=== PATIENT | male | born 1970 | race Caucasian/White ===

== ENCOUNTER 2019-09-15 09:00 | Observation (INO) | payer OTHER, SELFPAY ==
[2019-09-15] VITALS (9 sets, daily range): BP systolic 99–121; BP diastolic 58–92; PULSE 78–89; RESP 14–18; TEMP 36.1–36.8; O2SAT 96–99
--- NOTE | 2019-09-15 09:02 | ED.GENADUL_ITS ---
Discharge Plan Disposition Patient Disposition: OTHER Condition: Stable Discharge Details Chief Complaint: ThroatFB Clinical Impression: Globus sensation Primary Care Provider: Sahra,Local ED Provider: Sarah Garvey Home Meds and New Rx's Prescriptions: No Action lisinopril 10 mg Tablet 10 mg PO DAILY AM RF: 0 Medical Decision Making 919 -- 49-year-old male presents with sensation of food stuck in throat after eating steak last night. Vitals normal on arrival. He appears nontoxic. He is speaking in full sentences and swallowing secretions. No drooling. Normal orop harynx. Lungs clear. Attempted EZ gas fizzy granules x2 at bedside without any relief. Also attempted to drink carbonated soda without relief. He is unable to swallow these liquids. Will place an IV, bolus IV fluids, 1 mg glucagon and obtain a soft tissue neck x-ray. 1130 -- soft tissue next x-ray negative. No relief with glucagon. Also attempted nitro sublingual without any relief. Patient still unable to swallow any liquids and he spits this back up each time. Will call surgery for evaluation. 1150 --discussed with Dr. Avery -will come to evaluate within the hour and plan to take patient to the OR. Patient is agreeable for plan. COVID swab obtained. Medical Records Medical records reviewed: Yes I reviewed the patient's medical records. Imaging Data Radiologic Study: Radiologist's impression: XR Soft Tissue Neck Exam date and time: 09/15/2019 10:47 AM Age: 49 years old Clinical indication: Other: Sensation of steak in throat TECHNIQUE: Imaging protocol: XR of the soft tissues of the neck. COMPARISON: No relevant prior studies available. FINDINGS: Airway: Normal. No abnormal narrowing. Soft tissues: Normal. Normal epiglottis. Bones/joints: Mild multilevel spondylosis. No acute fracture. IMPRESSION: No acute findings to explain globus sensation. HPI General Mode of arrival: ambulatory . Date/Time Provider Initiated Documentation: 09/15/19 09:01 . Limitations to Documentation: no limitations . Information obtained by: patient . HPI Narrative: Patient is a 49-year-old male who traveled from [place] yesterday to visit friends who presents with sensation of food stuck in throat after eating steak last night. Patient states he was drinking alcohol and eating steak when he felt a sensation that it was stuck. He states since then he has been unable to swallow liquids and eat foods as it comes right back up. He denies any throat pain, sore throat, difficulty breathing, abdominal pain. He states this happened once before but resolved on its own. Related Data Home Medications Medication Instructions Recorded Confirmed lisinopril 10 mg PO DAILY AM 09/15/19 09/15/19 Allergies Allergy/AdvReac Type Severity Reaction Status Date / Time No Known Allergies Allergy Unverified 09/15/19 09:15 Review of Systems All systems reviewed & are unremarkable except as noted in HPI and below Constitutional Constitutional: Reports as per HPI, Denies chills and Denies fever(s) Eyes Eyes: Denies blurry vision ENT Ears, Nose, Mouth, and Throat: Denies dizziness, Denies sore throat and Denies throat swelling Cardiovascular Cardiovascular: Denies chest pain and Denies dyspnea Respiratory Respiratory: Denies cough and Denies dyspnea Gastrointestinal Gastrointestinal: Denies abdominal pain, Denies diarrhea and Denies vomiting Genitourinary Genitourinary: Denies hematuria and Denies dysuria Musculoskeletal Musculoskeletal: Denies back pain and Denies numbness Integumentary/Breasts Skin/Breast: Denies lesions and Denies rash Neurologic Neurologic: Denies dizziness, Denies localized weakness and Denies numbness Allergic/Immunologic Allergic/Immunologic: Denies throat swelling [facility] Medical History (Updated 09/15/19 @ 12:07 by Sarah Garvey DO) HTN (hypertension) (Chronic) Surgical History (Updated 09/15/19 @ 09:18 by Sarah Garvey DO) No significant past surgical history (Acute) Social History Smoking/Tobacco Use Status: Former Tobacco Use Alcohol Intake: current Alcohol Intake frequency: 0-2 drinks per day Drug use: Rarely Substance use type: marijuana Do you feel safe at home: Yes Do you feel safe in your relationship?: Yes Exam Const General: cooperative, healthy appearing and no acute distress HENMT Head: normal to inspection Ears: hearing grossly normal bilaterally, external ears normal and TM's normal bilaterally General nose exam: external nose normal Face and sinus: normal facial exam Mouth: oral mucosae normal Throat: posterior oropharynx normal Eyes General: appearance normal, both eyes and all related structures EOM: EOM intact bilaterally Neck Neck: normal visual inspection, full ROM, no meningeal signs, trachea midline, supple, no anterior neck swelling and No submandibular swelling Lymphatic: no lymphadenopathy noted Chest Chest: normal inspection of the chest and no tenderness Resp Effort & Inspection: normal respiratory effort and able to speak in complete sentences Auscultation: clear to auscultation bilaterally Cardio Rate: regular rate Rhythm: regular rhythm GI Inspection: normal to inspection Palpation: soft, not firm, not rigid and nontender Auscultation: normal bowel sounds Skin General skin exam: no rashes or lesions noted Neuro General: patient alert, patient awake and patient oriented x3 Cognition: normal cognition Speech: speech normal Motor: muscle tone normal throughout Sensory Exam: no sensory deficits noted Extrem General: normal to inspection, full ROM, capillary refill normal, no calf tenderness bilaterally and no edema Psych Appearance: grossly normal Mental Status: mental status grossly normal Speech and Movement: speech and movement normal Affect: normal affect
--- NOTE | 2019-09-15 10:00 | DI.RAD_ITS ---
EXAM: XR SOFT TISSUE NECK CLINICAL HISTORY: sensation of food stuck in throat,r/o foreign body. TECHNIQUE: 2D digital imaging was performed. COMPARISON: No exams were available for comparison FINDINGS: BONES: No acute fracture is present. No bony destructive lesion is seen. Mild degenerative changes in the cervical spine. JOINTS: No dislocation present. SOFT TISSUE: No radiopaque foreign bodies. No prevertebral soft tissue swelling. IMPRESSION: No acute abnormality. DATA REPOSITORY: RADIATION DOSE DELIVERED:
[2019-09-15] MEDS: Glucagon 1 MG VIAL IV (10:28)
[2019-09-15] MEDS: Normal Saline 1,000 ML 1000 ML IV (10:30)
--- NOTE | 2019-09-15 10:58 | DI.VRAD_ITS ---
PROCEDURE INFORMATION: Exam: XR Soft Tissue Neck Exam date and time: 09/15/2019 10:47 AM Age: 49 years old Clinical indication: Other: Sensation of steak in throat TECHNIQUE: Imaging protocol: XR of the soft tissues of the neck. COMPARISON: No relevant prior studies available. FINDINGS: Airway: Normal. No abnormal narrowing. Soft tissues: Normal. Normal epiglottis. Bones/joints: Mild multilevel spondylosis. No acute fracture. IMPRESSION: No acute findings to explain globus sensation. Dictated and Authenticated by: Rajesh Villanueva MD. Ordering:ELAINA Smith MD
[2019-09-15] MEDS: nitroGLYcerin 0.4 MG TAB SL (11:37)
[2019-09-15] MEDS: Normal Saline 1,000 ML 125 ML IV ×2 (12:03→14:19)
--- NOTE | 2019-09-15 13:14 | HPE_ITS ---
Date of service: 09/15/19 Time of Service: 13:14 Assessment and Plan Assessment and plan (1) Esophageal foreign body: Status: Acute Assessment and plan: Informed consent is obtained for the procedural ( explained in simple layman's terms that the pt and/or family could understand) explaining risks vs benefits and alternatives to the procedure and consequences if we do not do the procedure and need/rational for the procedure. Risks include but are not limited to: bleeding, infection, perforation of esophagus, stomach, colon, small intestines, bronchus or trachea, or PTX. This would necessitate emergency surgery to repair the damage w/ possible ostomy; and other associated complications w/ the required surgery. Also complications of anesthesia including aspiration, CO/CVA/. aspiration History of Present Illness Consults Consult date: 09/15/19 Requesting physician: Sarah Garvey Narrative: [place] from [place] state and is here camping. Since dinner last night- feels like he has food stuck in his throat. He cannot swallow liquids down in the ED can't swallow water. He can manage his own secretions. This has happen once before- but has never had to have it removed before. no xrt or sx to head or neck. no recent injury or traumas. denies s/s of heartburn or indisgtion adn is not on any stomach medications. He is a non smoker. No problems w/ anethesia in the past. Review of Systems All systems reviewed & are unremarkable except as noted in HPI and below PFSH Medical History HTN (hypertension) (Chronic) Surgical History No significant past surgical history (Acute) Social History Smoking/Tobacco Use Status: Former Tobacco Use Alcohol Intake: current Alcohol Intake frequency: 0-2 drinks per day Drug use: Rarely Substance use type: marijuana Do you feel safe at home: Yes Do you feel safe in your relationship?: Yes Meds Home Medications and Allergies Home Medications Medication Instructions Recorded Confirmed Type lisinopril 10 mg PO DAILY AM 09/15/19 09/15/19 History Allergies Allergy/AdvReac Type Severity Reaction Status Date / Time No Known Allergies Allergy Unverified 09/15/19 09:15 Exam Resp Effort & Inspection: normal respiratory effort and able to speak in complete sentences Auscultation: clear to auscultation bilaterally Other: is coughing continueously. Cardio Rate: regular rate Rhythm: regular rhythm GI Inspection: normal to inspection Palpation: soft Auscultation: normal bowel sounds Results Last Vital Signs Temp 36.7 C 09/15/19 11:28 Pulse 86 09/15/19 11:28 Resp 18 09/15/19 11:28 BP 115/70 09/15/19 11:40 Pulse Ox 99 09/15/19 11:28 COVID-19 Screening Have you,or household,traveled outside [place] in last 14 days?: Yes Had IN PERSON contact w/suspected or confirmed C-19 person: No
--- NOTE | 2019-09-15 14:39 | ENDO_ITS ---
Date of service: 09/15/19 Time of Service: 14:39 Endoscopy Report DATE OF PROCEDURE: 09/15/19 PRE-OP DIAGNOSIS: esophageal foreign body POST-OP DIAGNOSIS: other (severe esophagitis/moderate gastritis ) PROCEDURE: egd adn foreign body removal SURGEON: Rosalinda Avery ANESTHESIA: GETA PATHOLOGY: none sent COMPLICATIONS: None DISPOSITION: floor PROCEDURE DESCRIPTION: After informed consent was obtained the patient was take to the procedure room and placed in a supine position. Monitors were applied and a time out was done. The patients name, date of , procedure type, allergies to medications and metal in their body was reviewed. A bite block was placed and the patient was sedated. Once sedated and comfortable the gastroscope was advanced through the oropharynx which was grossly normal into the esophagus. The proximal and mid-esophagus were severe esophagitis w/ erosions. Red meat impacted in the mid esophagus. I was able to work this into the stomach. In the distal esophagus there was noted nl. The scope was advanced into the stomach. There was moderate gastritis in the body/greater curve adn punctate erosions. There was no bleeding or sings of perforation. The scope was removed and the patient was woken up and taken back to [facility] in stable condition. The patient tolerated the procedure well without complication.
--- NOTE | 2019-09-15 14:44 | W.PM.DSUDISC ---
Discharge Plan Disposition Patient Disposition: HOME Condition: Stable Discharge Details Chief Complaint: ThroatFB Clinical Impression: Globus sensation Reason For Visit: steak in throat Attending Provider: Rosalinda Avery Primary Care Provider: Sahra,Local ED Provider: Sarah Garvey Home Meds and New Rx's Prescriptions: No Action lisinopril 10 mg Tablet 10 mg PO DAILY AM RF: 0 Discharge Instructions Additional Instructions: -Liquids only for the next 24hrs. than proceed to a soft diet for an additional 48 hrs. -you will have a sore throat for the next 1-3days. -gargle w/ salt water 4-5x a day for the next 72hrs as needed for sore throat. -no beef or pork. no Raw vegetables. NO Bread/chips/crackers for the next 72 hrs. -no alcohol for 24 hours -do not drive for 24 hours -stop using tobacco products -you have signs of chronic reflux on your EGD today. You needs to be on medication for this. -for reflux: you should also Continue with lifestyle modifications: no alcohol, tobacco products, Aspirin or NSAID's (ibuprofen, Motrin, Naprosyn, aleve, etc), soda pop/any carbonated beverages, caffeine (including tea & chocolate), and acidic foods, (tomatoes, citrus, onions, peppermints) spicy foods. Do not lie down for 30 minutes after eating, and do not eat 2 hours prior to bedtime. Avoid wearing tight fitting clothing/ belts Rx protonix. F/u w/ PCP when you return home. -You are a difficult intubation. This is an important medical condition to remember. Activity:: no lifting over 20#'s or strenuous activity x 24 hrs Diet:: liquids only for 24 hrs. Than soft diets x 24 hours. no steak or red meat for 72 hrs Discharge Orders Discharge Orders: Discharge Order (Routine); Ordered 09/15/19 Ordered By: Rosalinda Avery DS: Diagnosis Discharge Diagnosis (1) Esophageal foreign body: Status: Acute (2) Chronic GERD: Status: Acute (3) Erosive esophagitis: Status: Acute (4) Erosive gastritis: Status: Acute (5) Difficult airway for intubation: Status: Acute
[2019-09-15] MEDS: Pantoprazole 40 MG VIAL IVP (15:29)
[2019-09-15] MEDS: Normal Saline Flush 10 ML SYR IVP (15:29)
[2019-09-15] MEDS: Pantoprazole 40 MG TABCR PO (16:22)
[2019-09-16 12:07] LABS: COVID-19 RT-PCR UVMMC Result Negative (Negative)
== END 2019-09-15 16:36 | disposition home or self-care (01) ==
LOC: ER 12:07 → DSU 13:01 → MS 15:50
PROVIDERS: Admitting Provider Surgery; Emergency Provider Physician Assistant; Visit Provider Surgery
PROC: 0DC68ZZ Extirpation of Matter from Stomach, Via Natural or Artificial Opening Endoscopic (ICD-10-PCS; CPT 43247; principal; 2019-09-15 13:00)
DX: T18.128A Food in esophagus causing other injury, initial encounter (principal); K22.10 Ulcer of esophagus without bleeding; K29.60 Other gastritis without bleeding; Z11.59 Encounter for screening for other viral diseases; I10 Essential (primary) hypertension; Z79.899 Other long term (current) drug therapy; K21.9 Gastro-esophageal reflux disease without esophagitis
CPT/HCPCS: 43247; 96361; 96374; 99222; 99285; U0003; 70360; J1100; J1610; J2704